=== PATIENT | female | born 1965 | race Caucasian/White ===

== ENCOUNTER 2021-09-24 20:04 | Emergency (ER) | payer SELFPAY ==
[2021-09-24 20:18] VITALS: BP 156/86; PULSE 107; RESP 18; TEMP 37.8; O2SAT 100
--- NOTE | 2021-09-25 03:17 | PC.NURSE ---
2nd call no answer
== END 2021-09-25 07:21 | disposition left against medical advice (07) ==
LOC: ANHED 09-25 07:14
DX: M79.661 Pain in right lower leg (principal)
CPT/HCPCS: 99199

== ENCOUNTER 2022-01-25 07:56 | Emergency (ER) | payer OTHER, SELFPAY ==
--- NOTE | ~2022-01-25 | XR_ITS ---
EXAMINATION: XR chest 2V DATE: 01/25/2022 09:27 INDICATION: Cough and fevers, shortness of breath TECHNIQUE: Frontal and lateral views of the chest are obtained COMPARISON: None available FINDINGS: The lungs are free of acute opacities. No pleural effusion or pneumothorax. The cardiomedia stinal silhouette is normal. There is mild thoracic spondylosis. Calcified pulmonary nodules and calc ified bilateral hilar lymph nodes are consistent with old granulomatous disease. Surgical clips in th e right upper quadrant are likely from prior cholecystectomy. IMPRESSION: 1. No acute cardiopulmonary abnormality. Reviewed, dictated and finalized at location A.
[2022-01-25 08:02] VITALS: BP 130/68; PULSE 107; RESP 18; TEMP 37.1; O2SAT 98
[2022-01-25 08:19] VITALS: PULSE 97
[2022-01-25 08:20] VITALS: RESP 18; O2SAT 100
--- NOTE | 2022-01-25 09:13 | ED.GENADULT ---
HPI - General Adult General Chief complaint: Unspecified Stated complaint: SOB, Cough Time Seen by Provider: 01/25/22 08:19 History of Present Illness HPI narrative: Patient is a 56-year-old healthy female here for evaluation of generalized weakness, body aches, cough, and low-grade temperatures at home since last night. Body aches are concentrated in her lower extremities. Patient states her symptoms have come on gradually since last evening. She took an ibuprofen this morning with moderate relief of her symptoms. Patient states she cannot swallow pills so did not take Tylenol. Additionally notes a productive cough of clear sputum, but no chest pain or shortness of breath. Patient was around her grandchildren who had experienced respiratory symptoms as well. Denies leg swelling, syncope, unilateral weakness. Related Data Allergies Allergy/AdvReac Type Severity Reaction Status Date / Time Sulfa (Sulfonamide Allergy Intermediate rash Verified 01/25/22 08:25 Antibiotics) codeine Allergy Mild unknown Verified 01/25/22 08:25 Review of Systems Review of Systems: Gen.: Reports fevers and body aches. Eyes: Denies eye pain or visual change ENT: Denies congestion Respiratory: Reports cough. Denies shortness of breath CV: Denies chest pain or palpitations GI: Denies abdominal pain nausea, emesis or diarrhea denies burning, urgency, frequency or hematuria Musculoskeletal: Denies back pain or muscle pain Neuro: Denies numbness, tingling, weakness or focal weakness Skin: Denies rash Except as documented, all other systems reviewed and negative Exam Narrative: APPEARANCE: Well appearing, no pain in distress, well-nourished. Head: Normocephalic and atraumatic. EYES: PERRLA/EOMI, conjunctivae clear NOSE: No nasal drainage EARS: External ear normal in appearance THROAT: Oropharynx is clear. Mucous membranes are moist. NECK: Supple. No adenopathy, no masses. RESPIRATORY: Coughing throughout exam. Airway patent, respirations nonlabored. Clear to auscultation bilaterally, no rales, rhonchi, wheezing. CARDIOVASCULAR: Regular rate and rhythm without murmurs, rubs, or gallops. ABDOMINAL: Normoactive bowel sounds. Soft, nontender, nondistended. No rebound tenderness or guarding. MUSCULOSKELETAL: Extremities are warm and well-perfused. Moves all extremities well. No edema. NEURO: Normal speech. No focal neurologic deficits. SKIN: Skin is warm and dry. No rashes. PSYCHIATRIC: Normal affect/mood. Course Vital Signs Vital signs: Vital Signs Temperature 98.8 F 01/25/22 08:02 Pulse Rate 107 H 01/25/22 08:02 Respiratory Rate 18 01/25/22 08:02 Blood Pressure 130/68 01/25/22 08:02 Pulse Oximetry 98 01/25/22 08:02 Oxygen Delivery Room Air 01/25/22 08:02 Temperature 98.8 F 01/25/22 08:02 Pulse Rate 92 01/25/22 10:15 Respiratory Rate 18 01/25/22 10:15 Blood Pressure 111/66 01/25/22 10:15 Pulse Oximetry 98 01/25/22 10:15 Oxygen Delivery Room Air 01/25/22 08:02 Medical Decision Making MDM Narrative Medical decision making narrative: 56-year-old female here for evaluation of generalized body aches, fatigue, cough for the past day. She is uncomfortable appearing but is nontoxic, has normal vital signs; afebrile. Patient is positive for flu A which likely explains her symptoms. Her chest x-ray shows no acute disease. Patient does have a white count of 4.1 likely due to viral illness. Her hemoglobin is 9.2; she has a history of chronic anemia and has been worked up thoroughly by her PCP. Patient is stable for discharge at this time, forego antivirals as she is not immunosuppressed and has mild symptoms. Encouraged supportive care and we discussed return precautions, she voiced understanding. Vital Signs Vital Signs: Vital Signs Temperature 98.8 F 01/25/22 08:02 Pulse Rate 107 H 01/25/22 08:02 Respiratory Rate 18 01/25/22 08:02 Blood Pressure 130/68 01/25/22 08:02 Pulse Oximetry
[2022-01-25] MEDS: ACETAMINOPHEN ELIXIR 325 MG/10.15 ML UDC 650 MG PO (09:21)
[2022-01-25 09:28] LABS: Basophils Absolute Auto 0.1 K/mm3 (0.0-0.1); Basophils Percent Auto 1.2 % (0.2-1.2); Eosinophils Percent Auto 0.7 % (0-4.4); Hematocrit 31.5 % (37.0-47.0); Hemoglobin 9.2 g/dL (12.0-15.0); Immature Granulocyte Absolute 0.01 K/mm3 (0.00-0.031); Immature Granulocyte Percent A 0.2 % (0-0.5); Lymphocytes Absolute Auto 0.96 K/mm3 (0.9-3.2); Lymphocytes Percent Auto 23.5 % (18.3-44.2); Mean Corpuscular HGB Conc 29.2 g/dl (32-36); Mean Corpuscular Hemoglobin 19.1 pg (26-34); Mean Corpuscular Volume 65.5 fl (80-100); Mean Platelet Volume 10.2 fl (7.4-10.4); Monocytes Absolute Auto 0.7 K/mm3 (0.1-0.6); Monocytes Percent Auto 16.4 % (2.6-8.5); Neutrophils Absolute Auto 2.4 K/mm3 (1.3-6.7); Platelet Count Result 272 k/mm3 (150-375); Red Blood Count 4.81 M/mm3 (4.2-5.4); Red Cell Distribution Width 18.6 % (11.5-14.5); White Blood Count 4.1 K/mm3 (4.5-10.0)
[2022-01-25 09:39] LABS: Alanine Aminotransferase 19 U/L (6-35); Alkaline Phosphatase 111 U/L (38-126); Anion Gap 10 mmol/L (8-16); Aspartate Amino Transferase 33 U/L (14-36); Bilirubin,Total 0.5 mg/dL (0.2-1.3); Blood Urea Nitrogen 7 mg/dL (7-17); Calcium 8.2 mg/dL (8.4-10.2); Carbon Dioxide 23 mmol/L (22-30); Chloride 102 mmol/L (98-107); Estimated CRCL calculation 61 ml/min; Estimated Glomerular Filt Rate > 60; Glucose 88 mg/dL (65-110); Potassium 3.9 mmol/L (3.4-5.0); Sodium 135 mmol/L (137-145)
[2022-01-25 09:43] LABS: Influenza A QL RT-PCR Positive (Negative); Influenza B QL RT-PCR Negative (Negative); SARS-CoV-2 RNA PCR Negative
[2022-01-25 09:47] LABS: Anisocytosis 1+ (NORMAL); Platelet Estimate Adequate (Adequate); Schistocytes None Seen (NORMAL)
[2022-01-25 10:15] VITALS: BP 111/66; PULSE 92; RESP 18; O2SAT 98
== END 2022-01-25 10:15 | disposition home or self-care (01) ==
PROVIDERS: Physician Assistant; Emergency Provider Emergency Medicine
DX: J10.1 Influenza due to other identified influenza virus with other respiratory manifestations (principal); Z20.822 Contact with and (suspected) exposure to COVID-19
CPT/HCPCS: 36415; 71046; 80053; 85025; 87502; 99283; A9270; C9803; U0003; U0005